=== PATIENT | female | born 1985 | race Asian ===

== ENCOUNTER → 2017-04-16 | Outpatient (CLI) | payer BC ==
[2017-04-16 14:57] LABS: CALCULATED INSULIN SENSITIVITY 0.311; GLUCOSE LOG 1.9294; INSULIN FASTING 19.1 mU/L (3-25); INSULIN LOG 1.281
== END | disposition home or self-care (01) ==
LOC: C.LAB1850 12:34
PROVIDERS: ATTEND Obstetrics & Gynecology
DX: Z01.419 Encounter for gynecological examination (general) (routine) without abnormal findings (principal); E16.1 Other hypoglycemia

== ENCOUNTER → 2017-04-16 | Outpatient (CLI) | payer BC | END | disposition home or self-care (01) | LOC: C.PAPS 14:15 | PROVIDERS: ATTEND Obstetrics & Gynecology | DX: Z01.419 Encounter for gynecological examination (general) (routine) without abnormal findings (principal) ==

== ENCOUNTER → 2018-04-18 | Outpatient (CLI) | payer BC ==
[2018-04-18 12:01] LABS: FOLLICLE STIMULAT HORMONE 9.77 IU/L; LUTEINIZING HORMONE 1.65 IU/L
== END | disposition home or self-care (01) ==
LOC: C.LAB1850 11:02
PROVIDERS: ATTEND Specialist
DX: Z31.41 Encounter for fertility testing (principal)

== ENCOUNTER → 2018-04-18 | Outpatient (CLI) | payer BC ==
--- NOTE | 2018-04-18 10:45 | DIAGNOSTIC IMAGING REPORT ---
TRANSVAG-FEMALE PELVIS CLINICAL HISTORY: 32 years-old Female presenting with FEMALE Infertility, lab THEN ULTR. TECHNIQUE: Real-time grayscale and color and spectral Doppler ultrasound imaging of the pelvis was performed first using a transabdominal probe and subsequently transvaginal for better characterization. COMPARISON: None. FINDINGS: Uterus: Normal. Anteverted. The uterus measures 7.3 x 3.8 x 5.3 cm. Endometrial stripe measures 7 mm in thickness. Endometrium normal-appearing. Cervix contains Nabothian cysts. Right adnexa: Right ovary contains follicles (4), the largest measuring up to 6 mm in diameter. Right ovary measures 2.2 x 0.8 x 1.9 cm. Normal color Doppler flow and arterial and venous waveforms within the ovarian parenchyma. Left adnexa: Left ovary contains follicles (6), the largest measuring up to 5 mm in diameter. Left ovary measures 2.1 x 1.0 x 1.5 cm. Normal color Doppler flow and arterial and venous waveforms within the ovarian parenchyma. Other: Trace free fluid, likely physiologic. IMPRESSION: Multiple follicles noted in each ovary. No ovarian torsion. Normal uterus apart from nabothian cysts in the cervix. Electronically signed by: Jorge A Christopher M.D. 04/18/2018 10:43 AM Dictated Date/Time: 04/18/2018 10:39 AM
[2018-04-18 13:31] LABS: BASO % 0.5 %; BASO ABS # 0.02 K/uL (0-0.2); EOS % 0.8 %; EOS ABS # 0.03 K/uL (0-0.5); HEMATOCRIT 42.5 % (37-47); HEMOGLOBIN 13.8 g/dL (12.0-16.0); LYMPH % 38.2 %; LYMPH ABS # 1.44 K/uL (1.2-3.4); MEAN CELL VOLUME 89.1 fL (80-100); MEAN CORPUSCULAR HEMOGLOBIN 28.9 pg (25-34); MEAN CORPUSCULAR HGB CONC 32.5 g/dl (32-36); MEAN PLATELET VOLUME 10.2 fL (7.4-10.4); MONO % 5.6 %; MONO ABS # 0.21 K/uL (0.11-0.59); NEUT % 54.9 %; NEUT ABS # 2.07 K/uL (1.4-6.5); PLATELET COUNT 336 K/uL (130-400); RED CELL DISTRIBUTION WIDTH CV 13.2 % (11.5-14.5); WHITE BLOOD COUNT 3.77 K/uL (4.8-10.8)
[2018-04-18 14:28] LABS: ALBUMIN 4.3 gm/dl (3.4-5.0); ALKALINE PHOSPHATASE 61 U/L (45-117); ALT/SGPT 31 U/L (12-78); AST/SGOT 13 U/L (15-37); BLOOD UREA NITROGEN 7 mg/dl (7-18); CALCIUM 8.5 mg/dl (8.5-10.1); CARBON DIOXIDE 22 mmol/L (21-32); CHOLESTEROL 117 mg/dl (0-200); CREATININE 0.58 mg/dl (0.60-1.20); GLUCOSE 86 mg/dl (70-99); LDL CHOLESTEROL CALCULATED 51 mg/dl; POTASSIUM 3.4 mmol/L (3.5-5.1); SODIUM 139 mmol/L (136-145); TOTAL PROTEIN 7.8 gm/dl (6.4-8.2)
[2018-04-18 14:55] LABS: HEP C IGG 13 YRS+OLDER_RFLX NEG (NEG)
[2018-04-22 15:27] LABS: ANA SCREEN TC 249X POSITIVE (NEGATIVE)
== END | disposition home or self-care (01) ==
LOC: C.ULTRBC 09:10
PROVIDERS: ATTEND Specialist
DX: N97.9 Female infertility, unspecified (principal); Z31.41 Encounter for fertility testing; Z11.3 Encounter for screening for infections with a predominantly sexual mode of transmission; Z11.4 Encounter for screening for human immunodeficiency virus [HIV]; Z11.59 Encounter for screening for other viral diseases; E28.2 Polycystic ovarian syndrome; Z13.21 Encounter for screening for nutritional disorder; E55.9 Vitamin D deficiency, unspecified; E61.1 Iron deficiency; K76.0 Fatty (change of) liver, not elsewhere classified; R94.5 Abnormal results of liver function studies; E78.5 Hyperlipidemia, unspecified; N88.8 Other specified noninflammatory disorders of cervix uteri; N83.01 Follicular cyst of right ovary; N83.02 Follicular cyst of left ovary

== ENCOUNTER → 2018-05-03 | Outpatient (CLI) | payer BC ==
--- NOTE | 2018-05-03 10:10 | DIAGNOSTIC IMAGING REPORT ---
ABDOMEN LIMITED (US) HISTORY: 32 years-old Female ABNORMAL RESULTS OF LIVER FUNCTION STUDIES acutely elevated LFTs COMPARISON: Right upper quadrant ultrasound 05/03/2016 TECHNIQUE: Multiple real-time sonographic images of the abdominal right upper quadrant were obtained assessing grayscale appearance and color flow FINDINGS: The visualized pancreas appears unremarkable. There is increased echogenicity of the liver suggesting hepatic steatosis which is unchanged from comparison. Areas of decreased echogenicity about the luis hepatis suggest areas of fatty sparing. No focal hepatic mass lesion or intrahepatic biliary ductal dilation. Gallbladder is unremarkable without shadowing cholelithiasis, wall thickening or pericholecystic fluid. Common bile duct is normal, 3 mm. Nonshadowing 5 mm echogenic lesion of the superior pole right kidney. IMPRESSION: 1. No cholelithiasis or sonographic evidence of acute cholecystitis. 2. Hepatic steatosis. 3. No biliary ductal dilation. 4. 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 The above report was generated using voice recognition software. It may contain grammatical, syntax or spelling errors. Electronically signed by: Cedrick Rueda M.D. 05/03/2018 10:08 AM Dictated Date/Time: 05/03/2018 10:06 AM
[2018-05-03 13:06] LABS: BASO % 0.5 %; BASO ABS # 0.02 K/uL (0-0.2); EOS % 1.9 %; EOS ABS # 0.08 K/uL (0-0.5); HEMATOCRIT 40.3 % (37-47); HEMOGLOBIN 13.1 g/dL (12.0-16.0); LYMPH ABS # 1.85 K/uL (1.2-3.4); MEAN CELL VOLUME 89.4 fL (80-100); MEAN CORPUSCULAR HGB CONC 32.5 g/dl (32-36); MEAN PLATELET VOLUME 10.3 fL (7.4-10.4); MONO % 5.3 %; MONO ABS # 0.23 K/uL (0.11-0.59); NEUT % 49.3 %; NEUT ABS # 2.12 K/uL (1.4-6.5); PLATELET COUNT 314 K/uL (130-400); RED CELL DISTRIBUTION WIDTH CV 12.8 % (11.5-14.5); RED CELL DISTRIBUTION WIDTH SD 41.8 fL (36.4-46.3)
[2018-05-03 13:34] LABS: POTASSIUM 3.8 mmol/L (3.5-5.1)
== END | disposition home or self-care (01) ==
LOC: C.ULTRBC 09:24
PROVIDERS: ATTEND Family Medicine
DX: E87.6 Hypokalemia (principal); D72.818 Other decreased white blood cell count; R94.5 Abnormal results of liver function studies; K76.0 Fatty (change of) liver, not elsewhere classified

== ENCOUNTER → 2018-05-29 | Outpatient (CLI) | payer BC ==
--- NOTE | 2018-05-29 12:13 | DIAGNOSTIC IMAGING REPORT ---
HYSTEROSALPINGOGRAM HISTORY: Infertility. FLUOROSCOPY TIME: 0.8 minutes. 4 fluoroscopic spot images submitted. TECHNIQUE: The cervix was cannulated by the director records management-county sheriff and water soluble contrast was instilled into the uterus under fluoroscopic guidance. Multiple spot images were obtained. FINDINGS: The uterine cavity is normal in size, shape, and position. The fallopian tubes are patent and there is free peritoneal spill bilaterally. IMPRESSION: Normal hysterosalpingogram. Electronically signed by: Uzair Boateng M.D. 05/29/2018 12:11 PM Dictated Date/Time: 05/29/2018 12:11 PM
--- NOTE | 2018-05-29 12:32 | OPERATIVE REPORT ---
DATE OF OPERATION: 05/29/2018 PREOPERATIVE DIAGNOSIS: Infertility. POSTOPERATIVE DIAGNOSIS: Same. PROCEDURE: Injection of contrast media for hysterosalpingogram. SURGEON: Tessa Jarvis MD. DESCRIPTION OF PROCEDURE: Patient placed on fluoroscopy table in dorsal lithotomy position. Speculum placed. Cervix cleansed with Betadine x3. Allis clamp placed on anterior lip, and acorn manipulator attempted to be placed. This was unsuccessful. A Zumi catheter was then placed, and the balloon was inflated. The patient was repositioned on the fluoroscopy table after the speculum was removed. The radiologist came to the bedside. The injection took place, and the findings were in the report by the radiologist. Preliminary findings include normal uterine cavity, with normal tubal fill and spill. The device was then deflated and removed. The patient tolerated the procedure well. I attest to the content of the Intraoperative Record and any orders documented therein. Any exceptions are noted below. YOHANAD
== END | disposition home or self-care (01) ==
LOC: C.RAD 10:50
PROVIDERS: ATTEND Obstetrics & Gynecology
DX: Z31.41 Encounter for fertility testing (principal)

== ENCOUNTER 2020-01-10 11:06 | Inpatient (IN) ==
[2020-01-10] MEDS ORDERED: OXYTOCIN 30 UNITS/500 ML BAG IV PRN (11:38)
[2020-01-10] MEDS ORDERED: miSOPROStoL 50 MCG TAB PO ONE (11:38)
[2020-01-10] MEDS ORDERED: miSOPROStoL 50 MCG TAB ONE (11:42)
[2020-01-10 12:26] LABS: Hematocrit (blood only) 35.9 % (37-47); Mean Corpuscular Hemoglobin 31.6 pg (25-34); Mean Corpuscular Volume 94.5 fL (80-100); Mean Platelet Volume 9.9 fL (7.4-10.4); Platelet Count 241 K/uL (130-400); RDW Coefficient of Variation 14.2 % (11.5-14.5); RDW Standard Deviation 48.5 fL (36.4-46.3); White Blood Count 6.41 K/uL (4.8-10.8)
[2020-01-10 12:30] LABS: Mean Corpuscular Hgb Conc 33.4 g/dL (32-36)
[2020-01-10] MEDS: LABETALOL HCL 200 MG TAB PO SCH ×2 (13:56→17:59)
[2020-01-10] MEDS: CALCIUM CARBONATE 500 MG CHEWABLE TAB PO PRN ×2 (13:56→19:06)
[2020-01-10] MEDS: miSOPROStoL 50 MCG TAB PO SCH ×2 (15:46→19:47)
[2020-01-10] MEDS: FAMOTIDINE 10 MG TABLET PO PRN (16:49)
[2020-01-11] MEDS ORDERED: DINOPROSTONE 10 MG INSERT PV ONE (00:34)
[2020-01-11] MEDS: miSOPROStoL 50 MCG TAB PO SCH ×6 (03:45→23:45)
[2020-01-11] MEDS: CALCIUM CARBONATE 500 MG CHEWABLE TAB PO PRN ×2 (04:20→08:49)
[2020-01-11] MEDS: LABETALOL HCL 200 MG TAB PO SCH ×3 (08:49→18:53)
[2020-01-11] MEDS: FAMOTIDINE 10 MG TABLET PO PRN (11:24)
[2020-01-11] MEDS: LACTATED RINGER'S 1,000 ML IV PRN ×2 (14:15→20:36)
[2020-01-11] MEDS: OXYTOCIN 30 UNITS/500 ML BAG IV PRN (14:15)
[2020-01-11] MEDS ORDERED: ePHEDrine sulfate 50 MG/ML AMP ONE (20:08)
[2020-01-11] MEDS ORDERED: BUPIVACAINE 0.25% 30 ML VIAL ONE (20:08)
[2020-01-11] MEDS ORDERED: fentaNYL citrate 100 MCG/2 ML VIAL ONE (20:09)
[2020-01-11] MEDS ORDERED: fentaNYL 2MCG/ML ROPIV 1.25MG/ML 100 ML BAG EPI ONE (20:10)
--- NOTE | 2020-01-11 21:11 | Anesthesiology Consultation ---
Date of Service January 11, 2020 Assessment & Plan Chart Review Chart Review: Acceptable Risk for Labor Epidural Consults Requested none History Height/Weight Height: 5 ft 3.5 in Weight: 94.801 kg Allergies Allergy/AdvReac Type Severity Reaction Status Date / Time No Known Allergies Allergy Verified 01/10/20 14:21 Medications Home Medications Medication Instructions Recorded Confirmed Last Taken PNV cmb#95-ferrous fumarate-FA 1 tab PO DAILY 01/05/20 01/10/20 01/10/20 [] 0830 labetalol 200 mg PO TID 01/05/20 01/10/20 01/10/20 08:30 famotidine-Ca carb-mag hydrox 1 tab PO DAILY PRN 01/10/20 01/10/20 Unknown [Pepcid Complete] Active Medications Generic Name Dose Route Start Last Admin Trade Name Freq PRN Reason Stop Dose Admin Calcium Carbonate 500 - 1,000 mg 01/10/20 13:47 01/11/20 08:49 Tums PO 02/09/20 13:46 1,000 mg Q4HWA PRN Administration Indigestion Lactated Ringer's 1,000 mls @ 125 mls/hr 01/10/20 11:38 01/11/20 20:36 Lr IV 01/12/20 11:37 125 mls/hr .Q8H PRN Administration L&D Protocol Protocol Oxytocin 30 units in 500 mls @ 20 mls/hr 01/11/20 10:59 01/11/20 19:45 Pitocin IV 01/13/20 10:58 1.2 units/hr .Q24H PRN 20 mls/hr Labor Induction/Augmentation Titration Protocol 1.2 UNITS/HR Labetalol HCl 200 mg 01/10/20 13:00 01/11/20 18:53 Normodyne PO 02/09/20 12:59 200 mg PC EUGENIE Administration Misoprostol 50 mcg 01/10/20 15:45 01/11/20 11:45 Cytotec PO 02/09/20 15:44 Not Given Q4H EUGENIE Past Family History Family History Grandmother (Maternal) Diabetes Hypertension Mother Hypertension Grandmother (Paternal) Stomach cancer Denies family history of Ovarian cancer Prostate cancer Myocardial infarction Breast cancer Lung cancer Colorectal cancer Stroke Past Surgical History Surgical History H/O dilation and curettage 12/06/2018 after loss History of surgery EGG RETRIEVAL FOR IVF No pertinent past surgical history Social History Smoking Status: Never smoker Hx Alcohol Use: No Hx Substance Use: No substance use type: does not use Physical Exam Vital Signs Last Vital Signs Temp 36.7 C 01/11/20 19:13 Pulse 64 01/11/20 21:08 Resp 20 01/11/20 19:13 BP 154/90 H 01/11/20 21:08 Pulse Ox 99 01/11/20 21:05 Testing Laboratory Results 01/10/20 11:54
[2020-01-11] MEDS ORDERED: DiphenhydrAMINE HCL 50 MG/ML VIAL IV PRN (21:15)
[2020-01-11] MEDS ORDERED: ePHEDrine sulfate 50 MG/ML AMP IV PRN (21:15)
[2020-01-11] MEDS ORDERED: NALOXONE HCL 1 MG in SODIUM CHLORIDE 0.9% 1000ML 1,000 ML IV PRN (21:15)
[2020-01-11] MEDS ORDERED: NALOXONE HCL 0.4 MG/1 ML VIAL/CARP IV PRN (21:15)
[2020-01-11] MEDS ORDERED: NALBUPHINE HCL INJ 10 MG/ML AMP IV PRN (21:15)
[2020-01-11] MEDS ORDERED: fentaNYL 2MCG/ML ROPIV 1.25MG/ML 100 ML BAG EPI PRN (21:15)
[2020-01-11] MEDS ORDERED: Nursing to Pharmacy Communication ONE (22:30)
[2020-01-12] MEDS: CALCIUM CARBONATE 500 MG CHEWABLE TAB PO PRN ×3 (00:44→13:27)
[2020-01-12] MEDS: miSOPROStoL 50 MCG TAB PO SCH (03:45)
[2020-01-12] MEDS: LACTATED RINGER'S 1,000 ML IV PRN (05:01)
[2020-01-12] MEDS: LABETALOL HCL 200 MG TAB PO SCH ×3 (07:13→19:36)
[2020-01-12] MEDS: OXYTOCIN 30 UNITS/500 ML BAG IV PRN (10:49)
[2020-01-12] MEDS ORDERED: miSOPROStoL 200 MCG TAB ONE (11:26)
[2020-01-12] MEDS ORDERED: CARBOPROST TROMETHAMINE 250 MCG/ML AMPUL ONE (11:26)
[2020-01-12] MEDS ORDERED: OXYTOCIN 30 UNITS/500 ML BAG IV PRN (15:38)
[2020-01-12] MEDS ORDERED: DIPHTHERIA/TETANUS/PERTUSSIS 0.5 ML SYR/VIAL IM ONE (15:38)
[2020-01-12] MEDS ORDERED: OXYCODONE/ACETAMINOPHEN 5mg/325mg TAB PO PRN (15:38)
[2020-01-12] MEDS ORDERED: HYDROCORTISONE ACETATE 25 MG SUPP PR PRN (15:38)
[2020-01-12] MEDS ORDERED: ACETAMINOPHEN W/CODEINE #3 1 TAB PO PRN (15:38)
[2020-01-12] MEDS ORDERED: SUPERCREAM 0.870% 15 GM JAR EXT PRN (15:38)
[2020-01-12] MEDS ORDERED: miSOPROStoL 200 MCG TAB PR ONE (15:38)
[2020-01-12] MEDS ORDERED: ACETAMINOPHEN 325 MG TAB PO PRN (15:38)
--- NOTE | 2020-01-12 15:54 | Operative Report (OR) ---
DATE OF OPERATION: 01/12/2020 Ms. Wolfe is a [place] female 1, para 1. Blood type is O positive, group B strep negative. Due date 01/28/2020. This is an IVF . She went to [facility] and was complicated by hypertension. She was started on labetalol fairly early in her and for a long time was managed on 100 mg 3 times a day. Pressures began to become elevated even on labetalol at about 35-1/2 weeks and then we put her up to 200 mg 3 times a day. Some of the diastolics were running over 100 even on 200 t.i.d. She came in several times time; one time for blood work as an outpatient, a couple times for NSTs. When she got to 37+ weeks due to worsening blood pressure despite increasing doses of antihypertensive she was scheduled for induction. Came in for induction. She was given 2 doses of p.o. Cytotec followed by Cervidil tape and when the 12 hours was up she was started on IV Pitocin. IV Pitocin was gradually raised. Eventually, she had good pain relief from the epidural and we continued to up the IV Pitocin. Eventually had to put in a scalp clip and IUPC monitor, measured the pressures and eventually had the Pitocin up to 48 milliunits. Went to full dilatation, delivered a live infant via direct occiput anterior position over an intact perineum. There was a nuchal cord which was easily reduced over the head. Shoulders were delivered without difficulty. Infant was suctioned through the mouth and the nose. Cord was clamped, cut by the father. With IV Pitocin running, the placenta was removed. She had some uterine atony and eventually she got rectal Cytotec 1000 mcg. The laceration revealed a second-degree laceration. The vaginal mucosa was approximated out to beyond the hymenal ring with a running 2-0 Vicryl. A deep suture of 2-0 Vicryl was used to approximate the bulbocavernosus muscle, separate deep suture was used to approximate the perineal body and a running subcuticular suture was used to approximate the perineal skin edges. Estimated blood loss 400 mL. Vag exam including rectovaginal examination with insertion of Cytotec revealed no stitches through the rectum or hematoma formation. I attest to the content of the Intraoperative Record and any orders documented therein. Any exception s are noted below.
--- NOTE | 2020-01-12 17:09 | Anesthesia Procedure Note ---
Date of Service January 12, 2020 Anesthesia Post Epidural Note Vital Signs Vital Signs: Temp Pulse Resp BP Pulse Ox 37.3 C 102 H 20 119/71 98 01/12/20 16:50 01/12/20 17:07 01/12/20 16:50 01/12/20 17:07 01/12/20 15:35 Notes Mental Status: alert / awake / arousable and participated in evaluation Patient Amnestic to Procedure: No Nausea / Vomiting: adequately controlled Pain: adequately controlled Airway Patency, RR, SpO2: stable & adequate BP & HR: stable & adequate Hydration State: stable & adequate Neuraxial Anesthesia: was administered and sensory block is resolving Anesthetic Complications: no major complications apparent and Pt Satisfied with anesthetic care Epidural: Removed without complications and With tip intact
[2020-01-12] MEDS: BENZOCAINE 20% AER SPR 82.5 GM CAN EXT PRN (17:34)
[2020-01-12] MEDS ORDERED: LACTATED RINGER'S 1,000 ML IV SCH (18:00)
[2020-01-12] MEDS: DOCUSATE SODIUM 100 MG CAP PO SCH (21:38)
[2020-01-12] MEDS ORDERED: LABETALOL HCL 200 MG TAB PO SCH (22:00)
[2020-01-12] MEDS: IBUPROFEN 600 MG TAB PO PRN (23:31)
[2020-01-13 06:59] LABS: Hematocrit (blood only) 28.5 % (37-47); Hemoglobin 9.5 g/dL (12.0-16.0); Mean Corpuscular Hemoglobin 31.3 pg (25-34); Mean Corpuscular Hgb Conc 33.3 g/dL (32-36); Mean Corpuscular Volume 93.8 fL (80-100); Mean Platelet Volume 9.6 fL (7.4-10.4); Platelet Count 187 K/uL (130-400); RDW Coefficient of Variation 14.6 % (11.5-14.5); RDW Standard Deviation 49.1 fL (36.4-46.3); Red Blood Count 3.04 M/uL (4.2-5.4); White Blood Count 12.85 K/uL (4.8-10.8)
[2020-01-13] MEDS: DOCUSATE SODIUM 100 MG CAP PO SCH ×2 (09:10→20:26)
[2020-01-13] MEDS: PRENATAL VITAMIN 1 TAB PO SCH (09:10)
[2020-01-13] MEDS: LABETALOL HCL 200 MG TAB PO SCH (09:10)
--- NOTE | 2020-01-13 11:28 | Obstetrical Progress Note ---
Date of Service January 13, 2020 Assessment & Plan Admission and Anticipated Discharge Date Admission Date: January 10, 2020 Physical Exam Physical Exam: abdomen soft and non tender no calf tenderness ambulating well vaginal bleeding scant hgb 9.5 blood pressures good on labetalol 200 mg tid Results & Data ([facility]) Vital Signs (Past 12 Hours) Vital Signs Temp Pulse Resp BP BP Pulse Ox 01/13/20 09:05 81 18 128/82 01/13/20 07:50 37 C 98 H 18 105/65 97 01/13/20 04:00 36.4 C L 76 16 112/74
[2020-01-13] MEDS ORDERED: Nursing to Pharmacy Communication ONE ×2 (13:17→13:24)
[2020-01-13] MEDS: IBUPROFEN 600 MG TAB PO PRN (13:32)
[2020-01-13] MEDS: LABETALOL HCL 100 MG TAB PO SCH ×2 (14:02→21:02)
[2020-01-13] MEDS ORDERED: bisacodyL 5 MG TABEC PO SCH (20:00)
[2020-01-14] MEDS: IBUPROFEN 600 MG TAB PO PRN ×2 (01:26→18:13)
[2020-01-14 06:56] LABS: Hematocrit (blood only) 27.1 % (37-47); Hemoglobin 8.8 g/dL (12.0-16.0)
[2020-01-14] MEDS ORDERED: bisacodyL 10 MG SUPP PR PRN (09:00)
[2020-01-14] MEDS: DOCUSATE SODIUM 100 MG CAP PO SCH (09:23)
[2020-01-14] MEDS: LABETALOL HCL 100 MG TAB PO SCH ×2 (09:23→14:06)
[2020-01-14] MEDS: PRENATAL VITAMIN 1 TAB PO SCH (09:23)
--- NOTE | 2020-01-14 10:33 | Obstetrical Progress Note ---
Date of Service January 14, 2020 Assessment & Plan Admission and Anticipated Discharge Date Admission Date: January 10, 2020 Physical Exam Physical Exam: abdomen soft and non tender no calf tenderness ambulating well vaginal bleeding scant hgb 8.8 Results & Data ([facility]) Vital Signs (Past 12 Hours) Vital Signs Temp Pulse Pulse Resp BP BP Pulse Ox 01/14/20 09:20 36.8 C 93 H 18 123/76 98 01/13/20 23:10 37.0 C 92 H 18 126/85
[2020-01-14 16:24] VITALS: BP 125/84; PULSE 80; TEMP 99; O2SAT 96
[2020-01-14] MEDS: BENZOCAINE 20% AER SPR 82.5 GM CAN EXT PRN (18:29)
== END 2020-01-14 20:25 | disposition home or self-care (01) | DRG 807 ==
LOC: 4S1 11:06 → 4S2 01-12 19:30

== ENCOUNTER 2022-09-05 11:20 | Inpatient (IN) ==
[2022-09-06] MEDS ORDERED: LIDOCAINE 1% LOCAL 20 ML VIAL INFIL PRN (08:34)
[2022-09-06] MEDS ORDERED: OXYTOCIN 30 UNITS/500 ML BAG IV PRN ×2 (08:34→18:03)
[2022-09-06] MEDS ORDERED: miSOPROStoL 50 MCG TAB PO ONE ×2 (08:48→12:30)
[2022-09-06 09:39] LABS: Hematocrit (blood only) 39.1 % (34.1-44.9); Mean Corpuscular Hemoglobin 30.6 pg (25.0-34.0); Mean Corpuscular Hgb Conc 33.2 g/dL (32.0-36.0); Mean Platelet Volume 9.9 fL (9.4-12.3); Platelet Count 214 K/uL (130-400); RDW Coefficient of Variation 14.6 % (11.5-14.5); RDW Standard Deviation 49.4 fL (36.4-46.3); Red Blood Count 4.25 M/uL (3.93-5.22); White Blood Count 6.08 K/ul (4.8-10.8)
[2022-09-06] MEDS: FAMOTIDINE 10 MG TABLET PO SCH (13:14)
[2022-09-06] MEDS: LACTATED RINGER'S 1,000 ML IV PRN ×2 (18:04→21:57)
[2022-09-06] MEDS ORDERED: LABETALOL HCL 200 MG TAB PO SCH (21:00)
[2022-09-06] MEDS ORDERED: BUPIVACAINE 0.25% 30 ML VIAL ONE (21:19)
[2022-09-06] MEDS ORDERED: ePHEDrine sulfate 50 MG/ML AMP ONE (21:19)
[2022-09-06] MEDS ORDERED: fentaNYL citrate 100 MCG/2 ML VIAL ONE (21:19)
[2022-09-06] MEDS ORDERED: LIDOCAINE 2%/EPINEPHRINE 1:200,000 20 ML SDV ONE (21:19)
[2022-09-06] MEDS ORDERED: SODIUM CHLORIDE 0.9% INJ 10 ML VIAL ONE (21:19)
[2022-09-06] MEDS ORDERED: fentaNYL 2MCG/ML ROPIVACAINE 1.25MG/ML 100 ML BAG EPI ONE (21:20)
[2022-09-06] MEDS ORDERED: ePHEDrine sulfate 50 MG/ML AMP IV PRN (21:38)
[2022-09-06] MEDS ORDERED: diphenhydrAMINE 50 MG/ML VIAL IV PRN (21:38)
[2022-09-06] MEDS ORDERED: fentaNYL 2MCG/ML ROPIVACAINE 1.25MG/ML 100 ML BAG EPI PRN (21:38)
[2022-09-06] MEDS ORDERED: NALBUPHINE HCL INJ 10 MG/ML AMP IV PRN (21:38)
[2022-09-06] MEDS ORDERED: NALOXONE HCL 1 MG in SODIUM CHLORIDE 0.9% 1000ML 1,000 ML IV PRN (21:38)
[2022-09-06] MEDS ORDERED: ONDANSETRON INJ 2 MG/ML 2 ML VIAL IV PRN (21:38)
[2022-09-06] MEDS ORDERED: NALOXONE HCL 0.4 MG/1 ML VIAL/CARP IV PRN (21:38)
--- NOTE | 2022-09-06 21:40 | Anesthesiology Consultation ---
Date of Service September 06, 2022 Assessment & Plan Chart Review Chart Review: Patient NOT seen in Pre Admission Testing and Acceptable Risk for Labor Epidural Consults Requested none ASA ASA2 Proposed Anesthesia Anesthesia Type: Labor Epidural and CSE Risk / Benefits Reviewed With: PT / POA / Parent / Guardian, Accepts Plan and Informed Consent Obtained History Height/Weight Height: 5 ft 3 in Weight: 94.347 kg Allergies Allergy/AdvReac Type Severity Reaction Status Date / Time No Known Allergies Allergy Verified 09/06/22 10:01 Medications Home Medications Medication Instructions Recorded Confirmed Last Taken famotidine-Ca carb-mag hydrox 10 1 tab PO DAILY PRN Heartburn 01/10/20 09/06/22 Unknown mg-800 mg-165 mg chewable tablet (Pepcid Complete) acetone (urine) test (Ketone Urine #50 ea 05/12/22 05/12/22 Unknown Test strips) acetone (urine) test (Ketone Urine #50 ea 05/12/22 05/12/22 Unknown Test strips) blood sugar diagnostic (OneTouch #150 ea 05/12/22 05/12/22 Unknown Verio test strips) aspirin 81 mg capsule 81 mg PO DAILY 09/06/22 09/06/22 09/06/22 07:00 labetalol 100 mg tablet 200 mg PO TID 09/06/22 09/06/22 09/06/22 07:00 prenat.vits,katerin,kiq-zrfo-wjdsx 1 tab PO DAILY 09/06/22 09/06/22 09/06/22 07:00 Active Medications Generic Name Dose Route Start Last Admin Trade Name Freq PRN Reason Stop Dose Admin Famotidine 10 mg 09/06/22 10:15 09/06/22 13:14 Famotidine 10 Mg Tablet PO 10/06/22 10:14 10 mg QAM EUGENIE Administration Lactated Ringer's 1,000 mls @ 125 mls/hr 09/06/22 08:34 09/06/22 18:04 Lr IV 09/08/22 08:33 125 mls/hr .Q8H PRN Administration L&D Protocol Protocol Oxytocin 30 units in 500 mls @ 12 mls/hr 09/06/22 18:03 09/06/22 21:11 Pitocin IV 09/08/22 18:02 0.72 units/hr .Q24H PRN 12 mls/hr Labor Induction/Augmentation Titration Protocol 0.72 UNITS/HR NPO Date Last Intake of Fluids: 09/06/22 Time Last Intake of Fluids: 20:00 Date Last Intake of Solids: 09/06/22 Time Last Intake of Solids: 12:00 Exercise / Class Metabolic Activity II 4-5 Yardwork/Stairs/Walk up hill Past Family History Family History Grandmother (Maternal) Diabetes Hypertension Mother Hypertension Grandmother (Paternal) Stomach cancer Denies family history of Ovarian cancer Prostate cancer Myocardial infarction Breast cancer Lung cancer Colorectal cancer Stroke Past Surgical History Surgical History H/O dilation and curettage 12/06/2018 after loss History of surgery EGG RETRIEVAL FOR IVF No pertinent past surgical history Past Anesthesia History No Hx of Anesthesia Complications and No Family Hx of Anesthesia Complications History of PONV No Hx of PONV and No Hx of Motion Sickness Social History Smoking Status: Never smoker Hx Alcohol Use: No Hx Substance Use: No substance use type: does not use Review of Systems no chest pain or sob Physical Exam Vital Signs Last Vital Signs Temp 37.1 C 09/06/22 19:09 Pulse 75 09/06/22 21:37 Resp 18 09/06/22 19:09 BP 143/90 H 09/06/22 21:10 Pulse Ox 100 09/06/22 21:37 ENMT Mouth: no TMJ abnormality Thyromental Distance: > or= 3.5 Finger Breadths Mallampati Class: II Neck normal visual inspection Respiratory normal respiratory effort Auscultation: lungs clear to auscultation bilaterally Cardiovascular Rate/Rhythm: regular rate and regular rhythm Musculoskeletal Spine: normal cervical ROM Neurologic moves all extremities Psychiatric Orientation: alert and oriented x 3 Testing Laboratory Results 09/06/22 09:03
[2022-09-07] MEDS: CALCIUM CARBONATE 500 MG CHEWABLE TAB PO PRN ×2 (01:40→07:59)
[2022-09-07] MEDS ORDERED: DIPHTHERIA/TETANUS/PERTUSSIS 0.5 ML SYR/VIAL IM ONE (03:33)
[2022-09-07] MEDS ORDERED: HYDROCORTISONE ACETATE 25 MG SUPP PR PRN (03:33)
[2022-09-07] MEDS ORDERED: ACETAMINOPHEN W/CODEINE #3 1 TAB PO PRN (03:33)
[2022-09-07] MEDS ORDERED: miSOPROStoL 200 MCG TAB PR ONE (03:33)
[2022-09-07] MEDS ORDERED: oxyCODONE/ACETAMINOPHEN 5mg/325mg TAB PO PRN (03:33)
[2022-09-07] MEDS ORDERED: ACETAMINOPHEN 325 MG TAB PO PRN (03:33)
[2022-09-07] MEDS ORDERED: OXYTOCIN 30 UNITS/500 ML BAG IV PRN (03:33)
--- NOTE | 2022-09-07 04:36 | Operative Report (OR) ---
DATE OF PROCEDURE: 09/07/2022 DELIVERY NOTE: She is 2, para 2, one spontaneous AB. Blood type is O positive, group B strep negative, followed in our office for care and delivery. It is IVF . First was complicated by hypertension. She developed hypertension during this too. She was placed on baby aspirin. Eventually, she got up to the labetalol 200 mg 3 times a day. Size of the baby was checked by ultrasound a week prior to coming in for delivery. We made sure that she did not have abnormal abdominal circumference because she did fail her 3-hour glucose tolerance test and blood sugars were not followed as well as I would have liked them to be. She was brought in for delivery. She was given two doses of p.o. Cytotec 50 mcg, started into labor and then was switched to IV Pitocin at about 4 cm. Membranes were ruptured surgically. Fluid was clear. The Pitocin was continued to be advanced. She went to full dilatation, pushed out a live male via direct occiput anterior position over an intact perineum. Infant was suctioned through the mouth and the nose. Shoulders were delivered without difficulty. Body was delivered. Cord was allowed to pulse for 1 minute, then clamped and cut by the father. Cord blood was taken. With IV Pitocin running, the placenta was removed intact. Inspection of the perineum revealed the bilateral sulcus laceration, each laceration was repaired by identifying the apex and then running a 2-0 Vicryl out to the hymenal ring on the left side and identifying the apex on the right side, doing the same thing, then approximating the bulbocavernosus muscle and approximating the perineal skin edges. Following this, sponges were removed from the vagina. Palpation of the vagina revealed good approximation and then 800 mg of Cytotec was placed rectally and at that time, there was noted to be no stitches through the rectum. Catheter was removed. Estimated blood loss was 400 mL. The patient tolerated the procedure well and left the OR in good condition. Job ID: [id number] MTDD
--- NOTE | 2022-09-07 06:55 | Anesthesia Procedure Note ---
Date of Service September 07, 2022 Anesthesia Post Epidural Note Vital Signs Vital Signs: Temp Pulse Resp BP Pulse Ox 36.8 C 109 H 16 87/55 L 98 09/07/22 03:40 09/07/22 06:02 09/07/22 05:50 09/07/22 06:02 09/07/22 02:12 Notes Mental Status: alert / awake / arousable and participated in evaluation Patient Amnestic to Procedure: No Nausea / Vomiting: adequately controlled Pain: adequately controlled Airway Patency, RR, SpO2: stable & adequate BP & HR: stable & adequate Hydration State: stable & adequate Neuraxial Anesthesia: was administered and sensory block is resolving Anesthetic Complications: no major complications apparent and Pt Satisfied with anesthetic care Epidural: Removed without complications and With tip intact
[2022-09-07] MEDS: IBUPROFEN 600 MG TAB PO PRN ×2 (07:59→14:06)
[2022-09-07] MEDS: DOCUSATE SODIUM 100 MG CAP PO SCH ×2 (08:03→20:05)
[2022-09-07] MEDS: BENZOCAINE 20% AER SPR 82.5 GM CAN EXT PRN ×2 (08:04→20:05)
[2022-09-07] MEDS: PRENATAL VITAMIN 1 TAB PO SCH (08:04)
[2022-09-07] MEDS: LABETALOL HCL 200 MG TAB PO SCH ×2 (09:10→21:42)
[2022-09-07] MEDS: FAMOTIDINE 10 MG TABLET PO SCH (09:10)
[2022-09-08 08:02] LABS: Hematocrit (blood only) 29.9 % (34.1-44.9); Hemoglobin 9.9 g/dl (12.0-16.0); Mean Corpuscular Hgb Conc 33.1 g/dL (32.0-36.0); Mean Corpuscular Volume 93.7 fL (80.0-100.0); Mean Platelet Volume 9.5 fL (9.4-12.3); Platelet Count 203 K/uL (130-400); RDW Coefficient of Variation 14.9 % (11.5-14.5); RDW Standard Deviation 50.8 fL (36.4-46.3); Red Blood Count 3.19 M/uL (3.93-5.22)
[2022-09-08] MEDS: DOCUSATE SODIUM 100 MG CAP PO SCH (08:15)
[2022-09-08] MEDS: PRENATAL VITAMIN 1 TAB PO SCH (08:15)
[2022-09-08] MEDS: IBUPROFEN 600 MG TAB PO PRN (08:16)
[2022-09-08] MEDS: LABETALOL HCL 200 MG TAB PO SCH (08:17)
[2022-09-08] MEDS: FAMOTIDINE 10 MG TABLET PO SCH (08:17)
--- NOTE | 2022-09-08 09:24 | Obstetrical Progress Note ---
Date of Service September 08, 2022 Assessment & Plan Admission and Anticipated Discharge Date Admission Date: September 06, 2022 Subjective abdomen soft and non tender no calf tenderness ambulating well vaginal bleeding scant hgb 9.9 blood pressure well controlled on labetalol 200 mg bid Results & Data ([facility]) Vital Signs (Past 12 Hours) Vital Signs Temp Pulse Resp BP Pulse Ox O2 Del Method 09/08/22 08:20 36.9 C 91 H 18 128/90 98 Room Air 09/07/22 23:01 36.4 C L 86 18 117/78 97 Room Air 09/07/22 21:40 84 107/60
[2022-09-08] MEDS ORDERED: bisacodyL 5 MG TABEC PO SCH (20:00)
[2022-09-09] MEDS ORDERED: bisacodyL 10 MG SUPP PR PRN (03:33)
--- NOTE | 2022-09-13 07:26 | Coding Query ---
CODING QUERY To promote full compliance with coding requirements relating to patient care, provider participation is requested in all cases of flow manager uncertainty. Please assist us with the question(s) below: Coding Question(s): Please clarify the weeks of gestation at the time of admission. This information is missing in the documentation. Physician's Response(s): 39 weeks 0ne day Thank you Linda Barrett Principal Diagnosis: "that condition established after study, to be chiefly responsible for occasioning the admission of the patient to the hospital for care." Co-Existing Principal Diagnosis: "when two or more diagnoses equally meet the criteria for principal diagnosis as determined by the circumstances of admission, diagnostic work up, and/or therapy provided, and the Alphabetic Index, Tabular List, or another coding guideline does not provide sequencing direction, any one of the diagnoses may be sequenced first." "When the physician has documented what appears to be a current diagnosis in the body of the record, but has not included the diagnosis in the final diagnostic statement, the physician should be asked whether the diagnosis should be added." ([facility] 2 QTR90. p3-4) ZEB
== END 2022-09-08 11:20 | disposition home or self-care (01) | DRG 807 ==
LOC: 4S1 09-06 07:50 → 4E1 09-07 06:29